=== PATIENT | male | born 1990 | race Caucasian/White ===

== ENCOUNTER → 2021-05-27 | Outpatient (CLI) | payer BC ==
--- NOTE | 2021-05-27 17:52 | RAD ---
EXAMINATION: CT LOWER RIGHT EXTREMITY WITHOUT CONTRAST, 05/27/2021 1:40 PM CLINICAL INDICATION: Softball injury to right leg with pain and bruising and swelling in leg, tingli ng in toes. COMPARISON: None TECHNIQUE: Helical CT imaging performed of the right leg from the knee through the ankle without the use of intravenous contrast. Sagittal and coronal reformats were obtained. One or more of the following individualized dose reduction techniques were utilized for this examinat ion: 1. Automated exposure control 2. Adjustment of the mA and/or kV according to patient size 3. Use of iterative reconstruction technique. FINDINGS: There is no acute fracture. Alignment at the knee and ankle is maintained. There is no dege nerative joint disease. No joint effusion. Mild subcutaneous edema in the medial mid calf. No organiz ed fluid collection. IMPRESSION: Mild subcutaneous edema in the medial mid calf. No organized fluid collection or acute os seous abnormality. Electronically signed by: Katty Freeman MD (05/27/2021 5:50 PM) [id number]
== END ==
LOC: CT 13:29
PROVIDERS: ATTEND Family Medicine
DX: R22.41 Localized swelling, mass and lump, right lower limb (principal); M79.89 Other specified soft tissue disorders; R58 Hemorrhage, not elsewhere classified
CPT/HCPCS: 73700